=== PATIENT | male | born 1970 | race Caucasian/White ===

== ENCOUNTER 2018-09-10 22:34 | Emergency (ER) | payer BC, OTHER ==
[~2018-09-10] VITALS: Ht 185.4 cm; Wt 168.1 kg
[~2018-09-10 22:34] MED LIST: [UNRECOGNIZED DRUG - OTHER] MT
--- OUTSIDE RECORDS SUMMARY | 2018-09-10 22:37 | XMS REPORT | Clinical Summary ---
Author Author [facility] Organization [facility] Address Unknown Phone Unavailable Care Team Providers Care Travel Manager Name Role Phone Sharpless PCP Avery Kali Rivera Unavailable Allergies No Known Allergies Medications End Date Status Medication Sig Dispensed Refills Start Date Active lisinopril Take 40 mg by 0 (PRINIVIL,ZESTRIL) 10 MG mouth daily. tablet Active aspirin 81 MG EC tablet Take 81 mg by 0 mouth daily. Active apixaban (ELIQUIS) 5 mg Take 1 tablet 60 tablet 1 Tab tablet (5 mg total) 7 by mouth 2 (two) times daily. 11/06/2017 metoprolol (LOPRESSOR) 50 Take 1 tablet 60 tablet 1 MG tablet (50 mg total) 7 by mouth 2 (two) times daily. Active Problems Problem Noted Date Cellulitis 10/31/2016 A-fib 10/31/2016 Social History Date Tobacco Use Types Packs/Day Years Used Never Smoker Smokeless Tobacco: Never Used Alcohol Use Drinks/Week oz/Week Comments Yes 4 Standard 2.0 drinks or equivalent Sex Assigned at Date Recorded Not on file Industry Job Start Date Occupation Not on file Not on file Not on file Travel End Travel History Travel Start No recent travel history available. Last Filed Vital Signs Not on file Plan of Treatment Not on file Results Not on fileafter 09/09/2017 Insurance Payer Benefit Subscriber ID Type Phone Address Plan / Group AETNA - MGD CARE AETNA HMO xxxxxxxxxx HMO/POS POS QPOS [address] (Home) [place] [address] Advance Directives For more information, please contact: [facility] [address] [place] [address] Date Inactivated Comments Code Status Date Activated 11/06/2016 8:14 PM Full Code 10/31/2016 1:11 AM This code status was determined by: Patient
--- OUTSIDE RECORDS SUMMARY | 2018-09-10 22:38 | XMS REPORT ---
Author Author [facility] Address Unknown Phone Unavailable Care Team Providers Care Mexican Food Cook Name Role Phone SAUMYA VIVAR Unavailable Unavailable Problems This patient has no known problems. Allergies, Adverse Reactions, Alerts This patient has no known allergies or adverse reactions. Medications This patient has no known medications. Results Test Description Test Time Test Comments Text Results Atomic Results Result Comments BLOOD CULTURE 2016-11-06 14:18:00 CULTURE (BEAKER) (test qehb=2126) No growth in 5 days BLOOD [id number] 14:18:00* Test Item Value Reference Range Comments CULTURE (BEAKER) (test mnfk=3278) No growth in 5 days CBC W/PLT COUNT & AUTO [id number] 13:11:00* Test Item Value Reference Range Comments WHITE BLOOD CELL COUNT (BEAKER) (test sway=005) 10.1 K/ L 4.0-10.0 RED BLOOD CELL COUNT (BEAKER) (test cezc=519) 4.50 M/ L 4.20-5.80 HEMOGLOBIN (BEAKER) (test ccxx=701) 13.9 GM/DL 13.0-16.8 HEMATOCRIT (BEAKER) (test kkqg=006) 44.9 % 40.0-50.0 MEAN CORPUSCULAR VOLUME (BEAKER) (test ofab=781) 99.8 fL 82.0-98.0 MEAN CORPUSCULAR HEMOGLOBIN (BEAKER) (test xofa=750) 30.9 pg 27.0-33.0 MEAN CORPUSCULAR HEMOGLOBIN CONC (BEAKER) (test jlqy=196) 30.9 GM/DL 32.0-36.0 RED CELL DISTRIBUTION WIDTH (BEAKER) (test fmht=402) 12.1 % 10.3-14.2 PLATELET COUNT (BEAKER) (test oyic=887) 265 K/CU MM 150-430 MEAN PLATELET VOLUME (BEAKER) (test eaup=546) 7.8 fL 6.5-10.5 NUCLEATED RED BLOOD CELLS (BEAKER) (test rjrd=901) 0 /100 WBC 0-0 0.000.510.000.000.000.00(MANUAL DIFFERENTIAL)2016-11-06 13:11:00* Test Item Value Reference Range Comments NEUTROPHILS - REL (DIFF) (BEAKER) (test wyum=5845) 67 % LYMPHOCYTES - REL (DIFF) (BEAKER) (test bbpx=6625) 7 % MONOCYTES - REL (DIFF) (BEAKER) (test xpys=6244) 7 % BANDS - REL (DIFF) (BEAKER) (test mxdq=2723) 19 % 0-10 NEUTROPHILS - ABS (DIFF) (BEAKER) (test fcch=0784) 6.77 K/ L 1.80-8.00 LYMPHOCYTES - ABS (DIFF) (BEAKER) (test ikef=5348) 0.71 K/ L 1.48-4.50 MONOCYTES - ABS (DIFF) (BEAKER) (test kxep=4303) 0.71 K/ L 0.00-1.30 BANDS-ABS (DIFF) (BEAKER) (test nlio=5576) 1.9 K/ L 0.0-0.8 TOTAL COUNTED (BEAKER) (test wpof=8386) 100 BANDS + SEGMENTED NEUTROPHILS (BEAKER) (test idmu=7846) 8.69 WBC MORPHOLOGY (BEAKER) (test lbuu=015) Normal PLT MORPHOLOGY (BEAKER) (test vrza=915) Normal RBC MORPHOLOGY (BEAKER) (test nfkc=411) Normal BASIC METABOLIC [id number] 06:54:00* Test Item Value Reference Range Comments SODIUM (BEAKER) (test ejeb=443) 131 meq/L 136-145 POTASSIUM (BEAKER) (test olmb=365) 4.4 meq/L 3.5-5.1 CHLORIDE (BEAKER) (test aoux=499) 93 meq/L 98-107 CO2 (BEAKER) (test fmrz=133) 27 meq/L 22-29 BLOOD UREA NITROGEN (BEAKER) (test eeqb=176) 9 mg/dL 7-21 CREATININE (BEAKER) (test mdds=079) 0.85 mg/dL 0.57-1.25 GLUCOSE RANDOM (BEAKER) (test wpdo=480) 97 mg/dL 70-105 CALCIUM (BEAKER) (test uqsv=237) 9.5 mg/dL 8.4-10.2 EGFR (BEAKER) (test vuvs=4221) 97 mL/min/1.73 sq m ESTIMATED GFR IS NOT ACCURATE CREATININE CLEARANCE IN PREDICTING GLOMERULAR FILTRATION RATE. ESTIMATED GFR IS NOT APPLICABLE FOR DIALYSIS PATIENTS. CBC W/PLT COUNT & AUTO [id number] 06:05:00* Test Item Value Reference Range Comments WHITE BLOOD CELL COUNT (BEAKER) (test wjjg=723) 10.9 K/ L 4.0-10.0 RED BLOOD CELL COUNT (BEAKER) (test wcqn=709) 4.31 M/ L 4.20-5.80 HEMOGLOBIN (BEAKER) (test qjbb=906) 13.2 GM/DL 13.0-16.8 HEMATOCRIT (BEAKER) (test bdti=167) 42.7 % 40.0-50.0 MEAN CORPUSCULAR VOLUME (BEAKER) (test hpks=077) 99.0 fL 82.0-98.0 MEAN CORPUSCULAR HEMOGLOBIN (BEAKER) (test xyfn=392) 30.7 pg 27.0-33.0 MEAN CORPUSCULAR HEMOGLOBIN CONC (BEAKER) (test jkpx=597) 31.0 GM/DL 32.0-36.0 RED CELL DISTRIBUTION WIDTH (BEAKER) (test glbh=200) 11.8 % 10.3-14.2 PLATELET COUNT (BEAKER) (test lhpu=769) 292 K/CU MM 150-430 MEAN PLATELET VOLUME (BEAKER) (test kvob=246) 7.2 fL 6.5-10.5 NUCLEATED RED BLOOD CELLS (BEAKER) (test opov=670) 0 /100 WBC 0-0 NEUTROPHILS RELATIVE PERCENT (BEAKER) (test lbed=079) 79 % LYMPHOCYTES RELATIVE PERCENT (BEAKER) (test ztuq=371) 11 % MONOCYTES RELATIVE PERCENT (BEAKER) (test xtmn=527) 9 % EOSINOPHILS RELATIVE PERCENT (BEAKER) (test dbzr=991) 1 % BASOPHILS RELATIVE PERCENT (BEAKER) (test loeh=563) 0 % NEUTROPHILS ABSOLUTE COUNT (BEAKER) (test gcek=334) 8.67 K/ L 1.80-8.00 LYMPHOCYTES ABSOLUTE COUNT (BEAKER) (test qtyw=278) 1.16 K/ L 1.48-4.50 MONOCYTES ABSOLUTE COUNT (BEAKER) (test zsfx=356) 0.94 K/ L 0.00-1.30 EOSINOPHILS ABSOLUTE COUNT (BEAKER) (test qapw=018) 0.13 K/ L 0.00-0.50 BASOPHILS ABSOLUTE COUNT (BEAKER) (test vjsj=278) 0.02 K/ L 0.00-0.20 0.00BASIC METABOLIC [id number] 05:59:00* Test Item Value Reference Range Comments SODIUM (BEAKER) (test httr=555) 130 meq/L 136-145 POTASSIUM (BEAKER) (test pysk=795) 4.2 meq/L 3.5-5.1 CHLORIDE (BEAKER) (test vxjo=114) 94 meq/L 98-107 CO2 (BEAKER) (test emoh=969) 24 meq/L 22-29 BLOOD UREA NITROGEN (BEAKER) (test olnv=945) 9 mg/dL 7-21 CREATININE (BEAKER) (test rgjb=415) 0.83 mg/dL 0.57-1.25 GLUCOSE RANDOM (BEAKER) (test qbfu=256) 90 mg/dL 70-105 CALCIUM (BEAKER) (test ibzx=779) 9.4 mg/dL 8.4-10.2 EGFR (BEAKER) (test khjj=3785) 100 mL/min/1.73 sq m ESTIMATED GFR IS NOT ACCURATE CREATININE CLEARANCE IN PREDICTING GLOMERULAR FILTRATION RATE. ESTIMATED GFR IS NOT APPLICABLE FOR DIALYSIS PATIENTS. BASIC METABOLIC [id number] 05:10:00* Test Item Value Reference Range Comments SODIUM (BEAKER) (test obnk=371) 132 meq/L 136-145 POTASSIUM (BEAKER) (test youb=859) 4.3 meq/L 3.5-5.1 CHLORIDE (BEAKER) (test hlbl=126) 96 meq/L 98-107 CO2 (BEAKER) (test ndgv=624) 25 meq/L 22-29 BLOOD UREA NITROGEN (BEAKER) (test dqlk=580) 10 mg/dL 7-21 CREATININE (BEAKER) (test fide=322) 0.86 mg/dL 0.57-1.25 GLUCOSE RANDOM (BEAKER) (test uhxh=658) 95 mg/dL 70-105 CALCIUM (BEAKER) (test tnkb=332) 9.9 mg/dL 8.4-10.2 EGFR (BEAKER) (test icjv=2709) 96 mL/min/1.73 sq m ESTIMATED GFR IS NOT ACCURATE CREATININE CLEARANCE IN PREDICTING GLOMERULAR FILTRATION RATE. ESTIMATED GFR IS NOT APPLICABLE FOR DIALYSIS PATIENTS. CBC W/PLT COUNT & AUTO [id number] 05:07:00* Test Item Value Reference Range Comments WHITE BLOOD CELL COUNT (BEAKER) (test inir=294) 11.3 K/ L 4.0-10.0 RED BLOOD CELL COUNT (BEAKER) (test vual=118) 4.25 M/ L 4.20-5.80 HEMOGLOBIN (BEAKER) (test vbhv=323) 13.4 GM/DL 13.0-16.8 HEMATOCRIT (BEAKER) (test kjsq=568) 41.9 % 40.0-50.0 MEAN CORPUSCULAR VOLUME (BEAKER) (test qkba=225) 98.6 fL 82.0-98.0 MEAN CORPUSCULAR HEMOGLOBIN (BEAKER) (test pycj=949) 31.6 pg 27.0-33.0 MEAN CORPUSCULAR HEMOGLOBIN CONC (BEAKER) (test qtga=479) 32.1 GM/DL 32.0-36.0 RED CELL DISTRIBUTION WIDTH (BEAKER) (test smwn=966) 11.6 % 10.3-14.2 PLATELET COUNT (BEAKER) (test uiqe=198) 260 K/CU MM 150-430 MEAN PLATELET VOLUME (BEAKER) (test fzpb=671) 7.6 fL 6.5-10.5 NUCLEATED RED BLOOD CELLS (BEAKER) (test dctq=510) 0 /100 WBC 0-0 NEUTROPHILS RELATIVE PERCENT (BEAKER) (test rfjz=083) 79 % LYMPHOCYTES RELATIVE PERCENT (BEAKER) (test vquz=338) 11 % MONOCYTES RELATIVE PERCENT (BEAKER) (test gshj=243) 9 % EOSINOPHILS RELATIVE PERCENT (BEAKER) (test nsvy=793) 1 % BASOPHILS RELATIVE PERCENT (BEAKER) (test bwys=200) 0 % NEUTROPHILS ABSOLUTE COUNT (BEAKER) (test vrqk=988) 8.92 K/ L 1.80-8.00 LYMPHOCYTES ABSOLUTE COUNT (BEAKER) (test dfol=510) 1.20 K/ L 1.48-4.50 MONOCYTES ABSOLUTE COUNT (BEAKER) (test wsqo=720) 1.00 K/ L 0.00-1.30 EOSINOPHILS ABSOLUTE COUNT (BEAKER) (test tdvu=788) 0.15 K/ L 0.00-0.50 BASOPHILS ABSOLUTE COUNT (BEAKER) (test dilh=694) 0.02 K/ L 0.00-0.20 0.00BASIC METABOLIC [id number] 07:08:00* Test Item Value Reference Range Comments SODIUM (BEAKER) (test ztpr=322) 130 meq/L 136-145 POTASSIUM (BEAKER) (test qept=317) 4.1 meq/L 3.5-5.1 CHLORIDE (BEAKER) (test iqwo=249) 97 meq/L 98-107 CO2 (BEAKER) (test kbwp=924) 23 meq/L 22-29 BLOOD UREA NITROGEN (BEAKER) (test jubw=023) 10 mg/dL 7-21 CREATININE (BEAKER) (test omxp=942) 0.80 mg/dL 0.57-1.25 GLUCOSE RANDOM (BEAKER) (test aqup=346) 98 mg/dL 70-105 CALCIUM (BEAKER) (test jayh=608) 9.3 mg/dL 8.4-10.2 EGFR (BEAKER) (test emns=5157) 104 mL/min/1.73 sq m ESTIMATED GFR IS NOT ACCURATE CREATININE CLEARANCE IN PREDICTING GLOMERULAR FILTRATION RATE. ESTIMATED GFR IS NOT APPLICABLE FOR DIALYSIS PATIENTS. CBC W/PLT COUNT & AUTO [id number] 04:55:00* Test Item Value Reference Range Comments WHITE BLOOD CELL COUNT (BEAKER) (test bxdi=225) 10.8 K/ L 4.0-10.0 RED BLOOD CELL COUNT (BEAKER) (test gmrv=627) 4.13 M/ L 4.20-5.80 HEMOGLOBIN (BEAKER) (test ytlq=141) 13.5 GM/DL 13.0-16.8 HEMATOCRIT (BEAKER) (test imee=969) 40.3 % 40.0-50.0 MEAN CORPUSCULAR VOLUME (BEAKER) (test jley=418) 97.8 fL 82.0-98.0 MEAN CORPUSCULAR HEMOGLOBIN (BEAKER) (test zxfl=742) 32.8 pg 27.0-33.0 MEAN CORPUSCULAR HEMOGLOBIN CONC (BEAKER) (test xjpi=264) 33.5 GM/DL 32.0-36.0 RED CELL DISTRIBUTION WIDTH (BEAKER) (test vrqs=601) 13.0 % 10.3-14.2 PLATELET COUNT (BEAKER) (test dkne=074) 199 K/CU MM 150-430 MEAN PLATELET VOLUME (BEAKER) (test vpba=948) 9.1 fL 6.5-10.5 NUCLEATED RED BLOOD CELLS (BEAKER) (test cbzt=065) 0 /100 WBC 0-0 NEUTROPHILS RELATIVE PERCENT (BEAKER) (test krsx=875) 82 % LYMPHOCYTES RELATIVE PERCENT (BEAKER) (test rgyn=181) 10 % MONOCYTES RELATIVE PERCENT (BEAKER) (test crup=000) 7 % EOSINOPHILS RELATIVE PERCENT (BEAKER) (test yhhk=687) 1 % BASOPHILS RELATIVE PERCENT (BEAKER) (test gpdl=982) 0 % NEUTROPHILS ABSOLUTE COUNT (BEAKER) (test cbsl=524) 8.86 K/ L 1.80-8.00 LYMPHOCYTES ABSOLUTE COUNT (BEAKER) (test bpjp=730) 1.03 K/ L 1.48-4.50 MONOCYTES ABSOLUTE COUNT (BEAKER) (test scid=744) 0.75 K/ L 0.00-1.30 EOSINOPHILS ABSOLUTE COUNT (BEAKER) (test lqyn=681) 0.13 K/ L 0.00-0.50 BASOPHILS ABSOLUTE COUNT (BEAKER) (test flkv=732) 0.01 K/ L 0.00-0.20 0.00CBC W/PLT COUNT & AUTO [id number] 06:48:00* Test Item Value Reference Range Comments WHITE BLOOD CELL COUNT (BEAKER) (test nmeu=952) 12.0 K/ L 4.0-10.0 RED BLOOD CELL COUNT (BEAKER) (test zgnu=384) 4.19 M/ L 4.20-5.80 HEMOGLOBIN (BEAKER) (test vfpw=740) 13.2 GM/DL 13.0-16.8 HEMATOCRIT (BEAKER) (test nfro=767) 40.7 % 40.0-50.0 MEAN CORPUSCULAR VOLUME (BEAKER) (test ewzp=299) 97.1 fL 82.0-98.0 MEAN CORPUSCULAR HEMOGLOBIN (BEAKER) (test qcyu=339) 31.5 pg 27.0-33.0 MEAN CORPUSCULAR HEMOGLOBIN CONC (BEAKER) (test xbfm=258) 32.5 GM/DL 32.0-36.0 RED CELL DISTRIBUTION WIDTH (BEAKER) (test hpav=465) 12.7 % 10.3-14.2 PLATELET COUNT (BEAKER) (test ahhc=312) 208 K/CU MM 150-430 MEAN PLATELET VOLUME (BEAKER) (test akmg=721) 7.5 fL 6.5-10.5 NUCLEATED RED BLOOD CELLS (BEAKER) (test nytf=763) 0 /100 WBC 0-0 NEUTROPHILS RELATIVE PERCENT (BEAKER) (test pmck=716) 85 % LYMPHOCYTES RELATIVE PERCENT (BEAKER) (test ubuj=451) 8 % MONOCYTES RELATIVE PERCENT (BEAKER) (test wbvo=882) 6 % EOSINOPHILS RELATIVE PERCENT (BEAKER) (test fjnd=765) 1 % BASOPHILS RELATIVE PERCENT (BEAKER) (test zyup=795) 0 % NEUTROPHILS ABSOLUTE COUNT (BEAKER) (test kqru=517) 10.30 K/ L 1.80-8.00 LYMPHOCYTES ABSOLUTE COUNT (BEAKER) (test vknd=158) 0.94 K/ L 1.48-4.50 MONOCYTES ABSOLUTE COUNT (BEAKER) (test bvqx=212) 0.72 K/ L 0.00-1.30 EOSINOPHILS ABSOLUTE COUNT (BEAKER) (test xjhd=119) 0.08 K/ L 0.00-0.50 BASOPHILS ABSOLUTE COUNT (BEAKER) (test uojm=532) 0.03 K/ L 0.00-0.20 [id number] 06:40:00* Test Item Value Reference Range Comments MAGNESIUM (BEAKER) (test xtuj=735) 1.9 mg/dL 1.6-2.6 BASIC METABOLIC [id number] 06:40:00* Test Item Value Reference Range Comments SODIUM (BEAKER) (test crgu=197) 131 meq/L 136-145 POTASSIUM (BEAKER) (test keud=719) 4.3 meq/L 3.5-5.1 CHLORIDE (BEAKER) (test vjcp=588) 98 meq/L 98-107 CO2 (BEAKER) (test mfwu=583) 24 meq/L 22-29 BLOOD UREA NITROGEN (BEAKER) (test fqsg=841) 11 mg/dL 7-21 CREATININE (BEAKER) (test ruzh=395) 0.89 mg/dL 0.57-1.25 GLUCOSE RANDOM (BEAKER) (test powx=622) 102 mg/dL 70-105 CALCIUM (BEAKER) (test epjp=532) 9.4 mg/dL 8.4-10.2 EGFR (BEAKER) (test qsvm=7922) 92 mL/min/1.73 sq m ESTIMATED GFR IS NOT ACCURATE CREATININE CLEARANCE IN PREDICTING GLOMERULAR FILTRATION RATE. ESTIMATED GFR IS NOT APPLICABLE FOR DIALYSIS PATIENTS. VANCOMYCIN LEVEL, [id number] 17:38:00* Test Item Value Reference Range Comments VANCOMYCIN TROUGH (BEAKER) (test arxy=267) < ug/mL 10.0-20.0 URINALYSIS W/ [id number] 14:28:00* Test Item Value Reference Range Comments COLOR (BEAKER) (test nngh=068) Yellow CLARITY (BEAKER) (test cqhh=804) Clear SPECIFIC GRAVITY UA (BEAKER) (test hbcz=900) 1.020 1.001-1.035 PH UA (BEAKER) (test xvzb=336) 6.0 5.0-8.0 PROTEIN UA (BEAKER) (test lafz=111) 20 mg/dL Negative GLUCOSE UA (BEAKER) (test cupc=251) Negative Negative KETONES UA (BEAKER) (test vbph=212) 10 mg/dL Negative BILIRUBIN UA (BEAKER) (test lboh=859) Negative Negative BLOOD UA (BEAKER) (test rtue=174) Negative Negative NITRITE UA (BEAKER) (test gejo=074) Negative Negative LEUKOCYTE ESTERASE UA (BEAKER) (test mfcu=111) Negative Negative UROBILINOGEN UA (BEAKER) (test mkws=410) 0.2 mg/dL 0.2-1.0 RBC UA (BEAKER) (test hagh=476) < /HPF WBC UA (BEAKER) (test lcuf=780) 1 /HPF MUCUS (BEAKER) (test iuwf=7437) Rare SOURCE(BEAKER) (test vgju=0533) CBC W/PLT COUNT & AUTO [id number] 11:47:00* Test Item Value Reference Range Comments WHITE BLOOD CELL COUNT (BEAKER) (test hwsy=460) 13.2 K/ L 4.0-10.0 RED BLOOD CELL COUNT (BEAKER) (test cyru=520) 4.45 M/ L 4.20-5.80 HEMOGLOBIN (BEAKER) (test bytj=791) 14.3 GM/DL 13.0-16.8 HEMATOCRIT (BEAKER) (test cfme=609) 43.7 % 40.0-50.0 MEAN CORPUSCULAR VOLUME (BEAKER) (test chzr=108) 98.3 fL 82.0-98.0 MEAN CORPUSCULAR HEMOGLOBIN (BEAKER) (test fkid=986) 32.2 pg 27.0-33.0 MEAN CORPUSCULAR HEMOGLOBIN CONC (BEAKER) (test jaek=614) 32.8 GM/DL 32.0-36.0 RED CELL DISTRIBUTION WIDTH (BEAKER) (test vzij=166) 11.9 % 10.3-14.2 PLATELET COUNT (BEAKER) (test wpbi=774) 205 K/CU MM 150-430 MEAN PLATELET VOLUME (BEAKER) (test zrit=176) 7.3 fL 6.5-10.5 NUCLEATED RED BLOOD CELLS (BEAKER) (test awgs=829) 0 /100 WBC 0-0 NEUTROPHILS RELATIVE PERCENT (BEAKER) (test eycp=788) 87 % LYMPHOCYTES RELATIVE PERCENT (BEAKER) (test lsao=110) 8 % MONOCYTES RELATIVE PERCENT (BEAKER) (test nlhj=503) 5 % EOSINOPHILS RELATIVE PERCENT (BEAKER) (test sbnk=967) 1 % BASOPHILS RELATIVE PERCENT (BEAKER) (test rskj=481) 0 % NEUTROPHILS ABSOLUTE COUNT (BEAKER) (test yhlo=435) 11.50 K/ L 1.80-8.00 LYMPHOCYTES ABSOLUTE COUNT (BEAKER) (test zgbt=556) 1.02 K/ L 1.48-4.50 MONOCYTES ABSOLUTE COUNT (BEAKER) (test ktob=069) 0.64 K/ L 0.00-1.30 EOSINOPHILS ABSOLUTE COUNT (BEAKER) (test mmix=060) 0.09 K/ L 0.00-0.50 BASOPHILS ABSOLUTE COUNT (BEAKER) (test enhk=636) 0.00 K/ L 0.00-0.20 0.00BASI METABOLIC [id number] 11:31:00* Test Item Value Reference Range Comments SODIUM (BEAKER) (test ssem=539) 131 meq/L 136-145 POTASSIUM (BEAKER) (test spdx=436) 4.2 meq/L 3.5-5.1 CHLORIDE (BEAKER) (test ufmt=336) 99 meq/L 98-107 CO2 (BEAKER) (test hiwv=574) 23 meq/L 22-29 BLOOD UREA NITROGEN (BEAKER) (test zybs=108) 13 mg/dL 7-21 CREATININE (BEAKER) (test lfxl=909) 0.95 mg/dL 0.57-1.25 GLUCOSE RANDOM (BEAKER) (test rgfx=497) 111 mg/dL 70-105 CALCIUM (BEAKER) (test jhsa=559) 9.5 mg/dL 8.4-10.2 EGFR (BEAKER) (test knez=4090) 85 mL/min/1.73 sq m ESTIMATED GFR IS NOT ACCURATE CREATININE CLEARANCE IN PREDICTING GLOMERULAR FILTRATION RATE. ESTIMATED GFR IS NOT APPLICABLE FOR DIALYSIS PATIENTS. CREATININE, RANDOM [id number] 06:40:00* Test Item Value Reference Range Comments CREATININE URINE (BEAKER) (test flee=920) 193.7 mg/dL Reference Range: No NormalsSODIUM, RANDOM [id number] 06:40:00* Test Item Value Reference Range Comments SODIUM URINE (BEAKER) (test emgh=053) 97 meq/L Reference Range: No [id number] 06:13:00* Test Item Value Reference Range Comments MAGNESIUM (BEAKER) (test jesv=262) 1.8 mg/dL 1.6-2.6 HEMOGLOBIN [id number] 09:25:00* Test Item Value Reference Range Comments HEMOGLOBIN A1C (BEAKER) (test myrh=019) 5.2 % 4.3-6.1 CBC W/PLT COUNT & AUTO [id number] 08:39:00* Test Item Value Reference Range Comments WHITE BLOOD CELL COUNT (BEAKER) (test jeot=482) 21.7 K/ L 4.0-10.0 RED BLOOD CELL COUNT (BEAKER) (test swyw=281) 4.78 M/ L 4.20-5.80 HEMOGLOBIN (BEAKER) (test sbhe=531) 15.2 GM/DL 13.0-16.8 HEMATOCRIT (BEAKER) (test wsln=499) 46.7 % 40.0-50.0 MEAN CORPUSCULAR VOLUME (BEAKER) (test nwcx=634) 97.8 fL 82.0-98.0 MEAN CORPUSCULAR HEMOGLOBIN (BEAKER) (test lshr=973) 31.8 pg 27.0-33.0 MEAN CORPUSCULAR HEMOGLOBIN CONC (BEAKER) (test pzay=816) 32.5 GM/DL 32.0-36.0 RED CELL DISTRIBUTION WIDTH (BEAKER) (test stml=985) 11.9 % 10.3-14.2 PLATELET COUNT (BEAKER) (test nwat=420) 235 K/CU MM 150-430 MEAN PLATELET VOLUME (BEAKER) (test aqra=889) 7.9 fL 6.5-10.5 NUCLEATED RED BLOOD CELLS (BEAKER) (test ucej=734) 0 /100 WBC 0-0 0.000.580.000.000.630.000.000.000.00(MANUAL DIFFERENTIAL)2016-10-31 08:39:00* Test Item Value Reference Range Comments NEUTROPHILS - REL (DIFF) (BEAKER) (test yajq=9188) 80 % LYMPHOCYTES - REL (DIFF) (BEAKER) (test nrkl=1873) 5 % MONOCYTES - REL (DIFF) (BEAKER) (test enrj=1122) 4 % BANDS - REL (DIFF) (BEAKER) (test phps=4319) 11 % 0-10 NEUTROPHILS - ABS (DIFF) (BEAKER) (test jqag=8747) 17.36 K/ L 1.80-8.00 LYMPHOCYTES - ABS (DIFF) (BEAKER) (test rnng=1487) 1.09 K/ L 1.48-4.50 MONOCYTES - ABS (DIFF) (BEAKER) (test eoud=6123) 0.87 K/ L 0.00-1.30 BANDS-ABS (DIFF) (BEAKER) (test xrqj=5042) 2.4 K/ L 0.0-0.8 TOTAL COUNTED (BEAKER) (test vdsc=2581) 100 BANDS + SEGMENTED NEUTROPHILS (BEAKER) (test jcfb=6686) 19.75 WBC MORPHOLOGY (BEAKER) (test fkmk=010) Normal PLT MORPHOLOGY (BEAKER) (test juvu=350) Normal RBC MORPHOLOGY (BEAKER) (test vauk=277) Normal BASIC METABOLIC [id number] 05:53:00* Test Item Value Reference Range Comments SODIUM (BEAKER) (test jozl=423) 134 meq/L 136-145 POTASSIUM (BEAKER) (test rxvm=318) 4.6 meq/L 3.5-5.1 CHLORIDE (BEAKER) (test kawi=010) 100 meq/L 98-107 CO2 (BEAKER) (test mwye=757) 23 meq/L 22-29 BLOOD UREA NITROGEN (BEAKER) (test hpks=175) 20 mg/dL 7-21 CREATININE (BEAKER) (test zsuc=744) 1.48 mg/dL 0.57-1.25 GLUCOSE RANDOM (BEAKER) (test gvzc=814) 110 mg/dL 70-105 CALCIUM (BEAKER) (test vivb=633) 9.2 mg/dL 8.4-10.2 EGFR (BEAKER) (test ftdo=8029) 51 mL/min/1.73 sq m ESTIMATED GFR IS NOT ACCURATE CREATININE CLEARANCE IN PREDICTING GLOMERULAR FILTRATION RATE. ESTIMATED GFR IS NOT APPLICABLE FOR DIALYSIS PATIENTS. [id number] 05:48:00* Test Item Value Reference Range Comments MAGNESIUM (BEAKER) (test qryf=819) 1.5 mg/dL 1.6-2.6
[2018-09-10] MEDS ORDERED: KETOROLAC TROMETHAMINE 60 MG/2 ML VIAL IM ONE (23:15)
[2018-09-10] MEDS ORDERED: CLONIDINE HCL 0.1 MG TAB PO ONE (23:30)
[2018-09-11 01:18] VITALS: BP 174/87
== END 2018-09-11 00:23 | disposition home or self-care (01) ==
LOC: FSED 22:34
DX: M54.6 Pain in thoracic spine (principal); M62.830 Muscle spasm of back
CPT/HCPCS: 96372; 99283